=== PATIENT | female | born 1980 | race Caucasian/White ===

== ENCOUNTER → 2017-06-19 | Outpatient (CLI) | payer MEDICARE ==
[~2017-06-19] MED LIST: TYLENOL #3
== END ==
LOC: M LRY 09:09
PROVIDERS: ATTEND Nurse Practitioner Family
DX: Z53.8 Procedure and treatment not carried out for other reasons (principal)

== ENCOUNTER → 2020-02-17 | Outpatient (REF) | payer BC | LOC: M LAB REF 17:02 | PROVIDERS: ATTEND Internal Medicine Pulmonary Disease | DX: R05 Cough (principal) ==

== ENCOUNTER → 2020-02-26 | Outpatient (CLI) | payer BC ==
--- NOTE | 2020-02-26 13:23 | PFTRPT ---
Height: 65.50 Inches Weight: 220.00 Lbs BSA: 2.07 Diagnosis: J98.01 DATE OF STUDY: 02/26/2020 ORDERED BY: Dr. Rolon Spirometry: Pre and post bronchodilator study of excellent technical quality. Forced vital capacity reduced. FEV1 is in proportion. Obstructive index is, therefore, normal. Flow Volume Loop: Expiratory limb of the flow volume loop does suggest some nonspecific limitation. No significant bronchodilator response identified. Lung Volumes: Total lung capacity is borderline. Residual volume is in proportion. Diffusing Capacity: Diffusing capacity normal. Hemoglobin: Hemoglobin borderline elevated at 17.4. Airway Mechanics: Airway resistance and conductance are normal. IMPRESSION: Borderline lung volumes with borderline elevated hemoglobin. Please correlate clinically. MTDD
== END ==
LOC: M CARPUL 12:49
PROVIDERS: ATTEND Internal Medicine Pulmonary Disease
DX: J98.01 Acute bronchospasm (principal); R05 Cough

== ENCOUNTER → 2020-03-11 | Outpatient (CLI) | payer BC ==
[~2020-03-11] MED LIST changes: +ISOVUE-370 76% 100ML VIAL As Ordered ONE
--- NOTE | 2020-03-11 10:40 | REP ---
CT PULMONARY ANGIOGRAM: With IV contrast. HISTORY: Cough, bronchospasm. Hypoxemia. 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 She had undergone surgery and has a pacemaker. COMPARISON STUDIES: Comparison is made with chest x-ray from February 03, 2020. CONTRAST DOSE: 75 mL of Isovue [address] TECHNIQUE: Helical scanning is acquired and overlapping 1.5 mm and contiguous 3 mm axial images are reformatted. In addition, maximum intensity projection and multiplanar re-formation images are generated in sagittal and coronal imaging projections. 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 There is a surgical conduit connecting the suprahepatic IVC with the right main pulmonary artery. There appears to be a surgical connection between the superior vena cava and the right main pulmonary artery as well. Densely contrast opacified undiluted blood from the right arm injection subclavian vein opacifies the superior vena cava and dense undiluted contrast is seen filling the right upper lobe pulmonary arteries as a result. There is systemic arterial opacification via the right upper lobe pulmonary veins to the left atrium and then to the left ventricle. Because of the rearranged flow dynamics and the timing of the acquisition, the left pulmonary arterial tree and the IVC to right pulmonary artery shunt are not opacified at the time of the acquisition. Accordingly, the possibility of pulmonary embolus cannot be excluded. There is no evidence of aortic dissection. There are epicardial pacemaker leads with a pacemaker power plant in the epigastric region. Both the right and left atrium are dilated and there appears to be a very large atrial septal defect. The right ventricle is deformed and appears small. The pulmonic valve and main pulmonary trunk are atretic. The aortic root is somewhat dilated measuring 4.1 cm in anteroposterior dimension at the level of the right main pulmonary artery. No infiltrate is seen. No endobronchial disease is appreciated. There is no evidence of mass, adenopathy or pleural or pericardial effusion. The liver and the spleen appear enlarged and there is evidence of fatty infiltration of the liver. No focal lesion is seen. The visualized upper abdominal structures are otherwise unremarkable. There are postsurgical changes in the right rib cage. IMPRESSION: Complex surgically corrected congenital heart disease with surgical connection of the inferior vena cava and superior vena cava to the right pulmonary artery and apparent large atrial septal defect. Hypoplastic right heart structures. As a result of these factors, contrast opacification of the pulmonary arterial tree is limited. Cardiomegaly is observed. No endobronchial lesion is seen. No infiltrate is noted. Hepatosplenomegaly is observed. Electronically Signed by Vladimir Conklin MD 03/11/2020 11:14 A
== END ==
LOC: M RAD 08:59
PROVIDERS: ATTEND Internal Medicine Pulmonary Disease
DX: R05 Cough (principal); J98.01 Acute bronchospasm; R09.02 Hypoxemia; Z95.0 Presence of cardiac pacemaker; Z87.74 Personal history of (corrected) congenital malformations of heart and circulatory system; I51.7 Cardiomegaly; R16.2 Hepatomegaly with splenomegaly, not elsewhere classified
CPT/HCPCS: 71275; Q9967

== ENCOUNTER → 2020-04-02 | Outpatient (CLI) | payer BC ==
[~2020-04-02] MED LIST changes: -ISOVUE-370 76% 100ML VIAL As Ordered ONE
--- NOTE | 2020-05-21 14:52 | SLEEPCENT ---
DATE: 04/02/2020 ORDERED BY: Naomi Rolon MD Nocturnal polysomnography was performed for evaluation of sleep physiology in this patient with a history of excessive somnolence and non-restorative sleep. Eight hours and five minutes of data were reviewed. There were 383.5 minutes of sleep identified. Sleep latency was prolonged at 24 minutes. REM latency was normal at 78 minutes. Sleep architecture was fairly good with three REM cycles. Overall sleep efficiency was 79.9%. The patients electrocardiogram showed a regular rhythm with an average heart rate of 60 beats per minute. The EEG showed normal waveforms for awake and sleep. There were 40 respiratory events identified of ten seconds in duration or greater for an apnea hypopnea index of 6.3. The events were primarily obstructive, not exclusive to sleep stage, not exclusive to body posture. Arousals were seen with respiratory events 2.3 times per hour and oxygen desaturations were seen just below 90%. There was some limb activity, but arousal from limb events were few. IMPRESSIONS: Obstructive sleep apnea syndrome (G47.33). Apnea hypopnea index of 6.3. RECOMMENDATION: The patient should be encouraged to return to [facility] for [facility]. In the interim, alcohol and sedative avoidance should be practiced and caution exercised during the operation of motor vehicles. [facility]
== END ==
LOC: M SLEEP 20:00
PROVIDERS: ATTEND Internal Medicine Pulmonary Disease
DX: G47.33 Obstructive sleep apnea (adult) (pediatric) (principal)

== ENCOUNTER → 2021-05-11 | Outpatient (CLI) | payer BC ==
[2021-05-11 13:44] LABS: BASO # 0.1 10^3/uL (0.0-0.2); BASO % 1.5 % (0.0-1.0); EOS # 0.2 10^3/uL (0.0-0.5); EOS % 3.1 % (0.0-3.0); HEMATOCRIT 41.1 % (36.0-47.0); HEMOGLOBIN 13.1 g/dl (12.0-15.5); LYMPH # 0.8 10^3/uL (1.5-5.0); LYMPH % 13.1 % (24.0-44.0); MEAN CORPUSCULAR HGB CONC 31.9 g/dl (32.0-36.5); MEAN CORPUSCULAR VOLUME 94.3 fl (80.0-96.0); MONO # 0.6 10^3/uL (0.0-0.8); MONO % 9.8 % (2.0-8.0); NEUTROPHILS # 4.4 10^3/uL (1.5-8.5); PLATELET COUNT, AUTOMATED 189 10^3/uL (150-450); RED BLOOD COUNT 4.36 10^6/uL (4.00-5.40); WHITE BLOOD COUNT 6.1 10^3/uL (4.0-10.0)
[2021-05-11 15:41] LABS: IMMUNOGLOBULIN E 12.2 IU/ML (<100)
[2021-05-13 23:07] LABS: D001-IgE D pteronyssinus <0.10 kU/L (Class 0); E001-IgE Cat Epith/Dander < 0.10 kU/L (Class 0); E005-IgE Dog Dander < 0.10 kU/L (Class 0); G002-IgE Bermuda Grass < 0.10 kU/L (Class 0); G008-IgE Kentucky Bluegrass < 0.10 kU/L (Class 0); M001-IgE Penicillium chrysogen < 0.10 kU/L (Class 0); M002 IgE Cladosporium herbaru < 0.10 kU/L (Class 0); M003 IgE Aspergillus fumigatu < 0.10 kU/L (Class 0); M006-IgE Alternaria alternata < 0.10 kU/L (Class 0); T001-IgE Maple/Box Elder < 0.10 kU/L (Class 0); T003-IgE Common Silver Birch < 0.10 kU/L (Class 0); T006-IgE Cedar, Mountain < 0.10 kU/L (Class 0); T007-IgE Oak, White < 0.10 kU/L (Class 0); T008-IgE Elm, American < 0.10 kU/L (Class 0); T015-IgE Ash, White < 0.10 kU/L (Class 0); T041-IgE Hickory, White < 0.10 kU/L (Class 0); T070-IgE White Mulberry < 0.10 kU/L (Class 0); W001-IgE Ragweed, Short < 0.10 kU/L (Class 0); W009-IgE Plantain, English < 0.10 kU/L (Class 0); W014-IgE Pigweed, Rough < 0.10 kU/L (Class 0); W018-IgE Sheep Sorrel < 0.10 kU/L (Class 0)
== END ==
LOC: M LAB 13:04
PROVIDERS: ATTEND Internal Medicine Pulmonary Disease
DX: J45.30 Mild persistent asthma, uncomplicated (principal)